=== PATIENT | female | born 1945 | race Caucasian/White ===

== ENCOUNTER → 2018-04-01 | Outpatient (CLI) | payer MEDICARE, BC ==
[2018-04-01 12:23] LABS: Basophils # (A) 0.1 k/uL (0-0.2); Basophils % (A) 1 %; Eosinophils # (A) 0.1 k/uL (0-0.7); Eosinophils % (A) 1 %; HCT 48.7 % (34.0-46.0); HGB 16.2 gm/dL (11.4-16.0); Lymphocytes # (A) 1.4 k/uL (1.0-4.8); Lymphocytes % (A) 21 %; MCH 31.4 pg (25.0-35.0); MCHC 33.3 g/dL (31.0-37.0); MCV 94.3 fL (80.0-100.0); Mean Platelet Volume 6.3; Monocytes # (A) 0.3 k/uL (0-1.0); Monocytes % (A) 5 %; Neutrophils # (A) 4.8 k/uL (1.3-7.7); Neutrophils % (A) 71 %; Platelet Count 342 k/uL (150-450); RBC 5.16 m/uL (3.80-5.40); RDW 13.2 % (11.5-15.5); WBC 6.7 k/uL (3.8-10.6)
[2018-04-01 13:23] LABS: Erythrocyte Sedimentation Rate 20 mm/hr (0-20)
[2018-04-01 17:53] LABS: Albumin 4.6 g/dL (3.80-4.90); Albumin/Globulin Ratio 2.42 (1.20-2.10); Anion Gap 8.9 mmol/L (4.00-12.00); Calcium 9.8 mg/dL (8.7-10.3); Carbon Dioxide 28.1 mmol/L (21.6-31.8); Globulin 1.9 g/dL (1.6-3.3); LDL Cholesterol,Calculated 152.8 mg/dL (0.0-131.0); Potassium 4.9 mmol/L (3.5-5.5); Total Bilirubin 0.4 mg/dL (0.3-1.2); Total Protein 6.5 g/dL (6.2-8.2); VLDL Calculation 17.2 mg/dL (5.00-40.00)
[2018-04-01 18:01] LABS: T4, Free (Free Thyroxine) 1.2 ng/dL (0.80-1.80)
[2018-04-01 18:04] LABS: Vitamin D 25 Hydroxy 25.4 ng/mL (30.0-100.0)
[2018-04-01 18:17] LABS: C Reactive Protein, High Sens 10.56 mg/L (0.000-3.000)
[2018-04-01 19:36] LABS: Hemoglobin A1C 5.3 % (4.0-6.0)
== END | disposition home or self-care (01) ==
LOC: LABWHC1 11:06
PROVIDERS: ATTEND Internal Medicine Critical Care Medicine
DX: E55.9 Vitamin D deficiency, unspecified (principal); E78.5 Hyperlipidemia, unspecified; J45.909 Unspecified asthma, uncomplicated; R60.9 Edema, unspecified
CPT/HCPCS: 36415; 80053; 80061; 82306; 83036; 84439; 84443; 85025; 85652; 86141

== ENCOUNTER → 2023-01-20 | Outpatient (CLI) | payer MEDICARE, BC ==
--- NOTE | 2023-01-20 13:04 | CT ---
EXAMINATION TYPE: CT abdomen wo con DATE OF EXAM: 01/20/2023 COMPARISON: None HISTORY: 77-year-old female N2 8.1, Cyst of kidney, acquired. TECHNIQUE: Contiguous axial scanning of the abdomen without IV contrast. Coronal and sagittal reconst ructions performed. CT DLP: 430.90 mGycm Automated exposure control for dose reduction was used. FINDINGS: The heart is normal size without pericardial effusion. Lung bases clear without pleural effusion. There is a small hiatal hernia. Noncontrast liver, gallbladder, adrenal glands, kidneys, spleen, and pancreas show no gross abnormali ty. Detailed parenchymal assessment is limited due to the lack of IV contrast. No dilated small bowel, free fluid, or free air. No mesenteric or retroperitoneal adenopathy seen. Scattered [id number] stool within the colon. No pericolonic inflammatory change. There is some left-sided colonic diverticulosis noted. Pelvis not imaged. Scattered mild degenerative disc disease. Facet arthropathy lower lumbar spine. IMPRESSION: 1. NONCONTRAST EXAM OF THE ABDOMEN. NO DEFINITE FOCAL RENAL LESION IS IDENTIFIED. IF PERSISTENT JARED RN, CONSIDER A FOLLOW-UP CONTRAST-ENHANCED EXAM OR MRI. 2. SMALL HIATAL HERNIA AND LEFT-SIDED COLONIC DIVERTICULOSIS.
== END | disposition home or self-care (01) ==
LOC: RADCTMAIN 10:41
PROVIDERS: ATTEND Urology
DX: N28.1 Cyst of kidney, acquired (principal); K44.9 Diaphragmatic hernia without obstruction or gangrene; K57.30 Diverticulosis of large intestine without perforation or abscess without bleeding
CPT/HCPCS: 74150

== ENCOUNTER → 2023-12-15 | Outpatient (CLI) | payer MEDICARE, BC ==
--- NOTE | 2023-12-15 13:01 | US ---
EXAMINATION TYPE: US kidneys/renal and bladder DATE OF EXAM: 12/15/2023 COMPARISON: CT 01/20/2023 CLINICAL INDICATION: Female, 78 years old with history of N28.1 RENAL CYST; Patient denies any signs, symptoms, or relevant history EXAM MEASUREMENTS: Right Kidney: 9.1 x 5.4 x 4.8 cm Left Kidney: 9.4 x 4.4 x 4.4 cm Post Void Residual Volume: NA mL Right Kidney: Prominent renal pyramid with stone seen in lower pole; stone = 1.2 x 0.6 x 1.2 cm . No hydronephrosis. Left Kidney: WNL Bladder: WNL Bilateral Jets seen: Yes Normal Post Void Residual: NA Incidental - heterogenous and thickened endometrium IMPRESSION: 1. There is a 1.2 cm right renal calculus. No suspicious solid or cystic mass by ultrasound. 2. Incidental note made of a thickened and heterogeneous endometrium. Pelvic ultrasound recommended. [facility], , 12/15/2023 12:59 PM
== END | disposition home or self-care (01) ==
LOC: RADUSWWP 12:20
PROVIDERS: ATTEND Urology
CPT/HCPCS: 76770